=== PATIENT | male | born 1985 | race Two or more races ===

== ENCOUNTER 2021-12-13 08:25 | Emergency (ER) | payer SELFPAY ==
[2021-12-13 08:36] VITALS: BP 158/91; PULSE 63; RESP 19; TEMP 36.6; O2SAT 98; BMI 34.2
[2021-12-13 09:33] LABS: COVID-19 Test Negative (Negative)
--- NOTE | 2021-12-13 10:01 | ED_ITS ---
HPI - URI/Sore Throat General Chief Complaint: Upper Respiratory Symptoms Stated Complaint: sore throat headache Time Seen by Provider: 12/13/21 09:25 Source: patient Mode of arrival: ambulatory Limitations: no limitations History of Present Illness HPI Narrative: 36-year-old male healthy presents to ED for resolved sore throat, headache, and slight chills. Patient states his partner has similar symptoms. Patient denies any chest pain or shortness of breath. Patient is not vaccinated Review of Systems Review of Systems: Only symptoms are resolved sore throat, headache, and chills Yes all other systems are reviewed and are negative [facility] Social History Social History Advance Directives: No Advance Directives Information Provided: Yes Physical Exam Vital Signs: Vital Signs: Last Vital Signs Temp 98 F 12/13/21 08:36 Pulse 63 12/13/21 08:36 Resp 19 12/13/21 08:36 BP 158/91 H 12/13/21 08:36 Pulse Ox 98 12/13/21 08:36 BMI result Body Mass Index 34.2 Const: General: cooperative, healthy appearing, comfortable, no acute distress, well developed, alert, awake and Physically active Orientation/consciousness: patient oriented x3 HENMT: Head: Yes normal to inspection, Yes No palpable skull fracture present, Yes normocephalic, Yes atraumatic and No abrasion Ears: hearing grossly normal bilaterally, external ears normal, TM's normal bilaterally, EAC's normal, mastoids normal and no periauricular adenopathy Eyes: General: appearance normal, both eyes and all related structures Neck: Neck: Yes normal visual inspection, Yes full ROM, Yes no lymphadenopathy, Yes no meningeal signs, Yes trachea midline, No supple, No anterior neck swelling and No tender Chest: Chest palpation & inspection: normal inspection of the chest and normal palpation of entire chest wall Resp: Effort & Inspection: normal respiratory effort and able to speak in complete sentences Auscultation: clear to auscultation bilaterally Cardio: Jugular venous distension: no JVD Heart sounds: S1 normal heart sound present and S2 normal heart sound present GI: Inspection: Yes normal to inspection and No abdominal wall ecchymosis Palpation (GI): Soft to palpation, not firm, nontender, no guarding and not rigid : General: No CVA tenderness and Yes no CVA tenderness Back/Spine/Pelvis: Back: no CVA tenderness, No CVA tenderness and No back tenderness Skin: General skin exam: no rashes or lesions noted and elasticity normal Neuro: General: patient oriented x3, gait normal, no meningeal signs and CN's II-XI intact bilaterally Cranial nerves: Yes CN's II-XII intact bilaterally Extrem: General: Yes normal to inspection and Yes full ROM Psych: Appearance: grossly normal, well kempt and not disheveled Course Course Course Narrative: Patient tested for COVID Reevaluation(s) Reevaluation #1: COVID tested negative. Patient informed this may be false negative and we need to get retested and 5 days and to return to the ED immediately for any respiratory distress. Time: 10:04 MDM - URI/Sore Throat MDM Narrative Medical decision making narrative: Viral syndrome Lab Data Labs: Lab Results 12/13/21 Range/Units 09:09 COVID-19 ([facility]) Negative (Negative) COVID-19 Clin Com See Note Discharge Plan Discharge Clinical Impression: Acute viral syndrome Patient Disposition: Home, Self-Care Instructions: Viral Syndrome (ED) Additional Instructions: Your COVID test came back negative. This may be a false negative. Recommend retesting in 5 days. Return to the ED for any chest pain, shortness of breath, weakness, or any other concerning symptoms. Please follow-up with primary care provider Stand Alone Forms: Work/School Release Interventions: ED Discharge Assessment Last Done: 12/13/21 10:38 Discharge Date/Time: 12/13/21 10:38 Print Language: Colombian
== END 2021-12-13 10:38 | disposition home or self-care (01) ==
PROVIDERS: Emergency Provider Emergency Medicine
DX: B34.9 Viral infection, unspecified (principal); Z20.822 Contact with and (suspected) exposure to COVID-19; J02.9 Acute pharyngitis, unspecified
CPT/HCPCS: 87635; 99283